=== PATIENT | female | born 1980 | race American Indian/Alaskan Native ===

== ENCOUNTER 2017-11-29 12:49 | Emergency (ER) | payer MEDICAID ==
[2017-11-29 12:58] VITALS: BP 149/86
[2017-11-29] MEDS ORDERED: ASPIRIN PO ONE (12:59)
[2017-11-29] MEDS ORDERED: ASPIRIN ONE (12:59)
[2017-11-29 13:43] LABS: Basophils % (Auto) 0.4 % (0.0-1.8); Eosinophils % (Auto) 0.5 % (0.0-4.3); Hematocrit 37.6 % (30.3-42.9); Hemoglobin 12.7 gm/dl (10.1-14.3); Lymphocytes # (Auto) 2.3 K/mm3 (1.2-5.4); Lymphocytes % (Auto) 33.3 % (13.4-35.0); Mean Corpuscular HGB Conc 34 % (30-34); Mean Corpuscular Hemoglobin 31 pg (28-32); Mean Corpuscular Volume 91 fl (79-97); Monocytes # (Auto) 0.4 K/mm3 (0.0-0.8); Monocytes % (Auto) 5.2 % (0.0-7.3); Platelet Count 354 K/mm3 (140-440); Red Blood Count 4.12 M/mm3 (3.65-5.03); Red Cell Distribution Width 13.3 % (13.2-15.2)
[2017-11-29 13:55] LABS: BUN/Creatinine Ratio 9; Blood Urea Nitrogen 6 mg/dL (7-17); Calcium 9.2 mg/dL (8.4-10.2); Hemolysis Index 9
--- NOTE | 2017-11-29 14:00 | Emergency Department Report ---
ED Chest Pain HPI - General Chief Complaint: Chest Pain Stated Complaint: CHEST PAIN Time Seen by Provider: 11/29/17 13:56 Source: patient Mode of arrival: Ambulatory Limitations: No Limitations - History of Present Illness Initial Comments: 37-year-old female presents the emergency department with complaint of a 3 day history of some chest pain that started off as a midsternal and right-sided aching pain but has since started to wrap around towards her back. She denies any shortness of breath, nausea, vomiting or diaphoresis. She does complain of a little bit of swelling or fullness to her neck and has started to have some soreness of her throat when she swallows. She denies any past medical history. No recent travel or sick contacts at home. She does not use tobacco or any illicit drug use. - Related Data Previous Rx's Medication Instructions Recorded Last Taken Type HYDROcodone/APAP 5-325 [[place] 1 each PO Q6HR PRN #20 tablet 03/07/15 Unknown Rx 5-325 mg TAB] Ibuprofen [Motrin 800 MG tab] 800 mg PO Q8HR #45 tablet 03/07/15 Unknown Rx Allergies Allergy/AdvReac Type Severity Reaction Status Date / Time No Known Allergies Allergy Unverified 11/29/17 12:59 Heart Score - HEART Score History: Slightly suspicious EKG: Normal Age: < 45 Risk factors: No known risk factors Troponin: < normal limit HEART Score: 0 - Critical Actions Critical Actions: 0-3 pts:0.9-1.7%risk of adverse cardiac event.Candidate for discharge ED Review of Systems ROS: Stated complaint: CHEST PAIN Other details as noted in HPI Comment: All other systems reviewed and negative Constitutional: denies: chills, fever Eyes: denies: eye pain, eye discharge, vision change ENT: throat pain. denies: dental pain Respiratory: denies: cough, shortness of breath Cardiovascular: chest pain. denies: palpitations Gastrointestinal: denies: abdominal pain, nausea, diarrhea Genitourinary: denies: urgency, dysuria, discharge Musculoskeletal: back pain. denies: arthralgia Skin: denies: rash, lesions Neurological: denies: headache, weakness, paresthesias ED Past Medical Hx - Surgical History Hx Cholecystectomy: Yes Additional Surgical History: broke 2 bones in neck 2008, galbladder removal 2008 - Social History Smoking Status: Never Smoker - Medications Home Medications: Home Medications Medication Instructions Recorded Confirmed Last Taken Type HYDROcodone/APAP 5-325 [[place] 1 each PO Q6HR PRN #20 tablet 03/07/15 Unknown Rx 5-325 mg TAB] Ibuprofen [Motrin 800 MG tab] 800 mg PO Q8HR #45 tablet 03/07/15 Unknown Rx ED Physical Exam - General Limitations: No Limitations ED Course Vital Signs 11/29/17 12:53 Temperature 98.8 F Pulse Rate 93 H Blood Pressure 149/86 CHANTELL score - Ch[place]ell Score Age > 65: (0) No Aspirin use within the Past 7 Days: (0) No 3 or more CAD Risk Factors: (0) No 2 or more Angina events in past 24 hrs: (1) Yes Known CAD with more than 50% Stenosis: (0) No Elevated Cardiac Markers: (0) No ST Deviation Greater than 0.5mm: (0) No CHANTELL Score: 1 ED Medical Decision Making - Lab Data Result diagrams: 11/29/17 13:18 11/29/17 13:18 - EKG Data -: EKG Interpreted by [facility] EKG shows normal: sinus rhythm, axis, intervals (slightly prolonged RI interval) , QRS complexes, ST-T waves Rate: tachycardia - EKG Data When compared to previous EKG there are: previous EKG unavailable Interpretation: normal EKG Critical care attestation.: If time is entered above; I have spent that time in minutes in the direct care of this critically ill patient, excluding procedure time. ED Disposition Clinical Impression: Costochondritis Chest pain Qualifiers: Chest pain type: unspecified Qualified Code(s): R07.9 - Chest pain, unspecified Disposition: - TO HOME OR SELFCARE Is pt being admited?: No Condition: Stable Instructions: Chest Pain (ED), Costochondritis (ED) Additional Instructions: Please follow-up with your primary care physician in the next few days. I have given him a referral for a local community relations coordinator, Dr. Dunn, to follow up regarding your chest discomfort. Return to the emergency department immediately with any worsening of her symptoms, shortness of breath, trouble swallowing, or with any acute distress. Referrals: LIZETH NEVILLE MD [Primary Care Provider] - 3-5 Days FILOMENA DUNN MD [Staff Physician] - 3-5 Days Time of Disposition: 15:44
[2017-11-29] MEDS ORDERED: TORADOL IM ONE (15:24)
--- NOTE | 2017-12-01 07:38 | XRay Report ---
FINAL REPORT EXAM: XR CHEST ROUTINE 2V HISTORY: CP TECHNIQUE: PA and lateral chest radiographs PRIORS: None. FINDINGS: No mediastinal shift. Cardiac silhouette is not enlarged. No pneumothorax, effusion, or focal pulmonary opacity. No acute skeletal finding. IMPRESSION: No focal pulmonary opacity.
== END 2017-11-29 16:07 | disposition home or self-care (01) ==
LOC: ED 12:49
DX: M94.0 Chondrocostal junction syndrome [Tietze] (principal); Z90.49 Acquired absence of other specified parts of digestive tract
CPT/HCPCS: 36415; 71046; 80048; 84443; 84484; 84703; 85025; 85379; 93005; 93010; 96372; 99284; J1885